=== PATIENT | male | born 1960 | race Caucasian/White ===

== ENCOUNTER 2016-08-20 20:16 | Emergency (ER) | payer OTHER ==
--- NOTE | 2016-08-20 23:20 | REPUSA ---
CT of the chest without contrast Clinical statement: hemoptysis. Technique: Multiple axial CT images were obtained with 5 mm cuts through the chest without administra tion of contrast. No comparison is available. Findings: There is no thoracic lymphadenopathy. The visualized portions of the thyroid gland is unrem arkable. There are no pericardial or pleural effusions. The lungs are clear. Limited imaging of the u pper abdomen does not demonstrate any acute abnormalities. There are no suspicious osseous lesions. Impression: Unremarkable CT examination of the chest.
--- NOTE | 2016-08-20 23:46 | EDDOCDS ---
Nurse's Notes [facility] Name: Alfred Chappell Age: 55 yrs Sex: Male : 1960 Arrival Date: 08/20/2016 Time: 20:16 Bed PR Private MD: Unknown, Family Dr Diagnosis: Hemoptysis;Cough Presentation: 08/20 20:34 Presenting complaint: Patient states: Has had ongoing cough for approximately 1 year. A jo3 little after 1900, pt coughed and had some blood "splatter" on tissue. Denies chest pain. Adult Sepsis Screening: The patient does not have new or worsening altered mentation. Patient's respiratory rate is less than 22. Systolic blood pressure is greater than 100. Patient has a qSOFA score of 0- Negative Sepsis Screen. Suicide/Homicide risk assessment- the patient denies having any suicidal and/or homicidal ideations and does not present with any other emotional, behavioral or mental health complaints. Status: Patient is not a visitor services representative or dependent. Transition of care: patient was not received from another setting of care. 20:34 Acuity: DIANNA Level 3 jo3 20:34 Method Of Arrival: Walkin/Carried/Asstd jo3 Triage Assessment: 20:36 General: Appears in no apparent distress, Behavior is appropriate for age, cooperative. jo3 Pain: Denies pain. HIV screening NA for this visit Offered previously. Neurological: Level of Consciousness is awake, alert, Oriented to person, place, time. Respiratory: Airway is patent Respiratory effort is even, unlabored. Derm: Skin is pink, warm & dry. Historical: - Allergies: No known drug Allergies; - Home Meds: 1. none - PMHx: none; - PSHx: none; - Social history: Smoking status: Patient states was never smoker of tobacco. No barriers to communication noted, The patient speaks fluent Romanian, Speaks appropriately for age. - Family history: Not pertinent. - : The pt / caregiver states he / she is not on anticoagulants. Home medication list is obtained from the patient. - Exposure Risk Screening:: None identified. Screenin:43 Screening information is obtained from the patient. Fall risk: No risks identified. jmb Assistance ADL's: requires no assistance with activities of daily living. Abuse/DV Screen: The patient / caregiver reports he/she is: not in a situation that causes fear, pain or injury. Nutritional screening: No deficits noted. Advance Directives: Currently, there is no health care proxy. There is no active DNR order. There is no living will. There is no Power of Direct Marketing Manager. home support is adequate. Assessment: 23:43 General: Patient instructed on discharge instructions. Patient asked if there were any [facility] questions regarding discharge, patient stated no. Patient signed discharge instructions. Patient discharged in stable condition. . Vital Signs: 20:18 BP 145 / 99; Pulse 62; Resp 18; Temp 97.3(O); Pulse Ox 99% on R/A; Weight 127.01 kg ct3 (R); Height 6 ft. 2 in. (187.96 cm) (R); Pain 0/10; 22:42 BP 124 / 79; Pulse 57; Resp 18; Temp 98.7(TE); Pulse Ox 97% on R/A; Pain 0/10; jb5 23:43 BP 120 / 74; Pulse 62; Resp 18; Temp 98.4(O); Pulse Ox 97% on R/A; Pain 0/10; jmb 20:18 Body Mass Index 35.95 (127.01 kg, 187.96 cm) ct3 Vitals: 20:18 Log In Time: August 20, 2016 at 20:15. ct3 ED Course: 20:17 Patient visited by Ting Aguirre PCA. ct3 20:17 Patient moved to Waiting ct3 20:19 Unknown, Family Dr is Private Physician. ct3 20:19 Patient moved to Pre RCE ct3 20:36 Triage Initiated jo3 20:37 Patient visited by Ansley Aceves RN. jo3 21:02 Patient moved to Triage 3 jmb 21:17 Bill Babb PA is PHCP. mo1 21:17 Shailesh Mena DO is Attending Physician. mo1 21:21 Patient visited by Bill Babb PA. mo1 21:38 Patient moved to TR1 jmb 21:39 [facility] Payment Agreement was scanned into [employer] and attached to record. gjb 22:08 Patient moved to PR2 / jf3 22:36 Patient visited by Martha Parmar PCA. jb5 22:43 Patient visited by Parmar, Martha, EARLY CHILDHOOD. jb5 23:38 Unknown, Family is Referral Physician. mo1 23:43 The patient / caregiver is instructed regarding the plan of care and ED course. anuradhab 23:43 No IV's were initiated during this patient's visit. No procedures done that require jmb assistance. Order Results: There are currently no results for this order. Outcome: 23:38 Discharge ordered by Provider. mo1 23:43 Discharge Assessment: Patient awake, alert and oriented x 3. No cognitive and/or jmb functional deficits noted. Patient verbalized understanding of disposition instructions. Patient awake and alert. obeys commands, Oriented to person, place and time. Patient verbalized understanding of disposition instructions. Patient has no functional deficits. patient administered narcotics - no. The following High Risk Discharge criteria are identified: None. Condition: stable Condition: improved. Discharge instructions given to patient, Instructed on discharge instructions, follow up and referral plans. Demonstrated understanding of instructions, Pt was receptive of discharge instructions/ teaching. No special radiology studies were completed. Property sent home with patient. 23:45 Patient left the ED. jmb Signatures: Martha Parmar, EARLY CHILDHOOD EARLY CHILDHOOD jb5 Ansley Aceves,RN RN Ting Bowden, EARLY CHILDHOOD EARLY CHILDHOOD ct3 Bill Babb PA PA mo1 Apollo Harrison,RN RN David Pace,RN RN Liana Andre MTDD
--- NOTE | 2016-08-20 23:46 | EDDOCDS ---
Physician Documentation [facility] Name: Alfred Chappell Age: 55 yrs Sex: Male : 1960 Arrival Date: 08/20/2016 Time: 20:16 Bed PR Private MD: Dior, Family Montero Disposition: 08/20/16 23:38 Discharged to Home/Self Care. Impression: Hemoptysis, Cough. - Condition is Stable. - Discharge Instructions: Hemoptysis, Cough, Adult. - Medication Reconciliation, Local Pharmacy Hours form. - Follow up: Unknown, Family ; When: Call to arrange an appointment; Reason: Recheck today's complaints, Continuance of care. - Problem is chronic. - Symptoms are unchanged. Historical: - Allergies: No known drug Allergies; - Home Meds: 1. none - PMHx: none; - PSHx: none; - Social history: Smoking status: Patient states was never smoker of tobacco. No barriers to communication noted, The patient speaks fluent Tuvaluan, Speaks appropriately for age. - Family history: Not pertinent. - : The pt / caregiver states he / she is not on anticoagulants. Home medication list is obtained from the patient. - Exposure Risk Screening:: None identified. Vital Signs: 08/20 20:18 BP 145 / 99; Pulse 62; Resp 18; Temp 97.3(O); Pulse Ox 99% on R/A; Weight 127.01 kg / ct3 280.01 lbs (R); Height 6 ft. 2 in. (187.96 cm) (R); Pain 0/10; 22:42 BP 124 / 79; Pulse 57; Resp 18; Temp 98.7(TE); Pulse Ox 97% on R/A; Pain 0/10; jb5 23:43 BP 120 / 74; Pulse 62; Resp 18; Temp 98.4(O); Pulse Ox 97% on R/A; Pain 0/10; jmb 20:18 Body Mass Index 35.95 (127.01 kg, 187.96 cm) ct3 MDM: 21:34 Chest, 2 View (pa\E\lat) Ordered. EDMS 21:39 [facility] Payment Agreement was scanned into [employer] and attached to record. gjb 21:40 Financial registration complete. gjb 22:11 CT Chest Without Contrast Ordered. EDMS Signatures: Dispatcher [employer] EDMS Ansley AcevesRN RN Bill Ash PA PA mo1 Becker, Joshua, RN RN jmb Beck, Gabriela gjb The chart was reviewed and I authenticate all verbal orders and agree with the evaluation and treatment provided.Attachments: 21:39 [facility] Payment Agreement tonny MTDD
--- NOTE | 2016-08-21 08:07 | REP ---
Clinical: Cough. Technique: PA and lateral. Comparison: 07/29/2011. Findings: Mediastinum and cardiac silhouette are within normal limits and stable. Lung crow demonstrate bibasilar chronic changes and subtle superimposed atelectasis cannot be excluded. No focal consolidation, effusion, or pneumothorax. Skeletal structures intact. Impression: Predominately chronic changes. Cannot exclude very minimal basilar atelectasis. Signed by Teofilo So MD 08/21/2016 07:58 A
--- NOTE | 2016-08-23 00:46 | EDDOCDS ---
Physician Documentation [facility] Name: Alfred Chappell Age: 55 yrs Sex: Male : 1960 Arrival Date: 08/20/2016 Time: 20:16 Bed PR Private MD: Dior, Family Montero Disposition: 08/20/16 23:38 Discharged to Home/Self Care. Impression: Hemoptysis, Cough. - Condition is Stable. - Discharge Instructions: Hemoptysis, Cough, Adult. - Medication Reconciliation, Local Pharmacy Hours form. - Follow up: Unknown, Family ; When: Call to arrange an appointment; Reason: Recheck today's complaints, Continuance of care. - Problem is chronic. - Symptoms are unchanged. Historical: - Allergies: No known drug Allergies; - Home Meds: 1. none - PMHx: none; - PSHx: none; - Social history: Smoking status: Patient states was never smoker of tobacco. No barriers to communication noted, The patient speaks fluent Argentine, Speaks appropriately for age. - Family history: Not pertinent. - : The pt / caregiver states he / she is not on anticoagulants. Home medication list is obtained from the patient. - Exposure Risk Screening:: None identified. Vital Signs: 08/20 20:18 BP 145 / 99; Pulse 62; Resp 18; Temp 97.3(O); Pulse Ox 99% on R/A; Weight 127.01 kg / ct3 280.01 lbs (R); Height 6 ft. 2 in. (187.96 cm) (R); Pain 0/10; 22:42 BP 124 / 79; Pulse 57; Resp 18; Temp 98.7(TE); Pulse Ox 97% on R/A; Pain 0/10; jb5 23:43 BP 120 / 74; Pulse 62; Resp 18; Temp 98.4(O); Pulse Ox 97% on R/A; Pain 0/10; jmb 20:18 Body Mass Index 35.95 (127.01 kg, 187.96 cm) ct3 MDM: 21:34 Chest, 2 View (pa\E\lat) Ordered. EDMS 21:39 [facility] Payment Agreement was scanned into [employer] [address] and attached to record. gjb 21:40 Financial registration complete. gjb 22:11 CT Chest Without Contrast Ordered. EDMS 08/21 10:18 T-Sheet-- Draft Copy was scanned into [employer] [address] and attached to record. gb 10:18 Radiology Report was scanned into [employer] [address] and attached to record. gb Signatures: Dispatcher [employer] EDNM Tiffany Berkowitz, Reg Reg gb Ansley Aceves RN RN Bill Ash PA PA mo1 Becker, Joshua, RN RN jmb Beck, Gabriela gjb The chart was reviewed and I authenticate all verbal orders and agree with the evaluation and treatment provided.Attachments: 08/20 21:39 [facility] [place] gjb 08/21 10:18 T-Sheet-- Draft Copy gb Chart Complete MTDD
--- NOTE | 2016-08-23 00:46 | EDDOCDS ---
Nurse's Notes [facility] Name: Alfred Chappell Age: 55 yrs Sex: Male : 1960 Arrival Date: 08/20/2016 Time: 20:16 Bed PR Private MD: Unknown, Family Dr Diagnosis: Hemoptysis;Cough Presentation: 08/20 20:34 Presenting complaint: Patient states: Has had ongoing cough for approximately 1 year. A jo3 little after 1900, pt coughed and had some blood "splatter" on tissue. Denies chest pain. Adult Sepsis Screening: The patient does not have new or worsening altered mentation. Patient's respiratory rate is less than 22. Systolic blood pressure is greater than 100. Patient has a qSOFA score of 0- Negative Sepsis Screen. Suicide/Homicide risk assessment- the patient denies having any suicidal and/or homicidal ideations and does not present with any other emotional, behavioral or mental health complaints. Status: Patient is not a track service person or dependent. Transition of care: patient was not received from another setting of care. 20:34 Acuity: DIANNA Level 3 jo3 20:34 Method Of Arrival: Walkin/Carried/Asstd jo3 Triage Assessment: 20:36 General: Appears in no apparent distress, Behavior is appropriate for age, cooperative. jo3 Pain: Denies pain. HIV screening NA for this visit Offered previously. Neurological: Level of Consciousness is awake, alert, Oriented to person, place, time. Respiratory: Airway is patent Respiratory effort is even, unlabored. Derm: Skin is pink, warm & dry. Historical: - Allergies: No known drug Allergies; - Home Meds: 1. none - PMHx: none; - PSHx: none; - Social history: Smoking status: Patient states was never smoker of tobacco. No barriers to communication noted, The patient speaks fluent Lao, Speaks appropriately for age. - Family history: Not pertinent. - : The pt / caregiver states he / she is not on anticoagulants. Home medication list is obtained from the patient. - Exposure Risk Screening:: None identified. Screenin:43 Screening information is obtained from the patient. Fall risk: No risks identified. jmb Assistance ADL's: requires no assistance with activities of daily living. Abuse/DV Screen: The patient / caregiver reports he/she is: not in a situation that causes fear, pain or injury. Nutritional screening: No deficits noted. Advance Directives: Currently, there is no health care proxy. There is no active DNR order. There is no living will. There is no Power of Agency Owner. home support is adequate. Assessment: 23:43 General: Patient instructed on discharge instructions. Patient asked if there were any [facility] questions regarding discharge, patient stated no. Patient signed discharge instructions. Patient discharged in stable condition. . Vital Signs: 20:18 BP 145 / 99; Pulse 62; Resp 18; Temp 97.3(O); Pulse Ox 99% on R/A; Weight 127.01 kg ct3 (R); Height 6 ft. 2 in. (187.96 cm) (R); Pain 0/10; 22:42 BP 124 / 79; Pulse 57; Resp 18; Temp 98.7(TE); Pulse Ox 97% on R/A; Pain 0/10; jb5 23:43 BP 120 / 74; Pulse 62; Resp 18; Temp 98.4(O); Pulse Ox 97% on R/A; Pain 0/10; jmb 20:18 Body Mass Index 35.95 (127.01 kg, 187.96 cm) ct3 Vitals: 20:18 Log In Time: August 20, 2016 at 20:15. ct3 ED Course: 20:17 Patient visited by Ting Aguirre PCA. ct3 20:17 Patient moved to Waiting ct3 20:19 Unknown, Family Dr is Private Physician. ct3 20:19 Patient moved to Pre RCE ct3 20:36 Triage Initiated jo3 20:37 Patient visited by Ansley Aceves RN. jo3 21:02 Patient moved to Triage 3 jmb 21:17 Bill Babb PA is PHCP. mo1 21:17 Shailesh Mena DO is Attending Physician. mo1 21:21 Patient visited by Bill Babb PA. mo1 21:38 Patient moved to TR1 jmb 21:39 [facility] Payment Agreement was scanned into [email or web address] and attached to record. gjb 22:08 Patient moved to PR2 / jf3 22:36 Patient visited by Martha Parmar PCA. jb5 22:43 Patient visited by Parmar, Martha, POLICYHOLDER INFORMATION CLERK. jb5 23:38 Unknown, Family Dr is Referral Physician. mo1 23:43 The patient / caregiver is instructed regarding the plan of care and ED course. jmb 23:43 No IV's were initiated during this patient's visit. No procedures done that require jmb assistance. 08/21 00:02 CT Chest Without Contrast Returned. EDMS 08:46 Chest, 2 View (pa\\E\\lat) Returned. EDMS 10:18 T-Sheet-- Draft Copy was scanned into [email or web address] and attached to record. gb 10:18 Radiology Report was scanned into [email or web address] and attached to record. gb Order Results: Radiology Order: Chest, 2 View (pa\\E\\lat) Test: Chest, 2 View (pa\\E\\lat) REASON FOR EXAMINATION: Cough; Clinical: Cough.; ; Technique: PA and lateral.; ; Comparison: 07/29/2011.; ; Findings:; Mediastinum and cardiac silhouette are within normal limits and stable. Lung; crow demonstrate bibasilar chronic changes and subtle superimposed atelectasis; cannot be excluded. No focal consolidation, effusion, or pneumothorax. Skeletal; structures intact.; ; Impression:; Predominately chronic changes. Cannot exclude very minimal basilar atelectasis.; ; ; Signed by; Teofilo So MD 08/21/2016 07:58 A; Radiology Order: CT Chest Without Contrast Test: CT Chest Without Contrast REASON FOR EXAMINATION: cough with blood; ; CT of the chest without contrast; Clinical statement: hemoptysis.; Technique: Multiple axial CT images were obtained with 5 mm cuts through the chest without administra; tion of contrast.; No comparison is available.; Findings: There is no thoracic lymphadenopathy. The visualized portions of the thyroid gland is unrem; arkable. There are no pericardial or pleural effusions. The lungs are clear. Limited imaging of the u; pper abdomen does not demonstrate any acute abnormalities. There are no suspicious osseous lesions.; Impression: Unremarkable CT examination of the chest.; ; Outcome: 08/20 23:38 Discharge ordered by Provider. mo1 23:43 Discharge Assessment: Patient awake, alert and oriented x 3. No cognitive and/or jmb functional deficits noted. Patient verbalized understanding of disposition instructions. Patient awake and alert. obeys commands, Oriented to person, place and time. Patient verbalized understanding of disposition instructions. Patient has no functional deficits. patient administered narcotics - no. The following High Risk Discharge criteria are identified: None. Condition: stable Condition: improved. Discharge instructions given to patient, Instructed on discharge instructions, follow up and referral plans. Demonstrated understanding of instructions, Pt was receptive of discharge instructions/ teaching. No special radiology studies were completed. Property sent home with patient. 23:45 Patient left the ED. hellen Signatures: Dispatcher [employer] EDMS Tiffany Berkowitz, Reg Reg gb Martha Parmar, POLICYHOLDER INFORMATION CLERK POLICYHOLDER INFORMATION CLERK jb5 Ansley Aceves,RN RN Ting Bowden, POLICYHOLDER INFORMATION CLERK POLICYHOLDER INFORMATION CLERK ct3 Bill Babb PA PA mo1 Becker, Joshua,RN RN David PaceRN RN Liana Andre Chart Complete MTDDago
--- NOTE | 2016-08-23 00:46 | EDDOCDS ---
[facility] Name: Alfred Chappell Age: 55 yrs Sex: Male : 1960 Arrival Date: 08/20/2016 Time: 20:16 Bed PR Private MD: Dior, Family Montero Disposition: 08/20/16 23:38 Discharged to Home/Self Care. Impression: Hemoptysis, Cough. - Condition is Stable. - Discharge Instructions: Hemoptysis, Cough, Adult. - Medication Reconciliation, Local Pharmacy Hours form. - Follow up: Unknown, Family ; When: Call to arrange an appointment; Reason: Recheck today's complaints, Continuance of care. - Problem is chronic. - Symptoms are unchanged. Historical: - Allergies: No known drug Allergies; - Home Meds: 1. none - PMHx: none; - PSHx: none; - Social history: Smoking status: Patient states was never smoker of tobacco. No barriers to communication noted, The patient speaks fluent Slovak, Speaks appropriately for age. - Family history: Not pertinent. - : The pt / caregiver states he / she is not on anticoagulants. Home medication list is obtained from the patient. - Exposure Risk Screening:: None identified. Vital Signs: 08/20 20:18 BP 145 / 99; Pulse 62; Resp 18; Temp 97.3(O); Pulse Ox 99% on R/A; Weight 127.01 kg / ct3 280.01 lbs (R); Height 6 ft. 2 in. (187.96 cm) (R); Pain 0/10; 22:42 BP 124 / 79; Pulse 57; Resp 18; Temp 98.7(TE); Pulse Ox 97% on R/A; Pain 0/10; jb5 23:43 BP 120 / 74; Pulse 62; Resp 18; Temp 98.4(O); Pulse Ox 97% on R/A; Pain 0/10; jmb 20:18 Body Mass Index 35.95 (127.01 kg, 187.96 cm) ct3 MDM: 21:34 Chest, 2 View (pa\E\lat) Ordered. EDMS 21:39 [facility] Payment Agreement was scanned into [employer] and attached to record. gjb 21:40 Financial registration complete. gjb 22:11 CT Chest Without Contrast Ordered. EDMS 08/21 10:18 T-Sheet-- Draft Copy was scanned into [employer] and attached to record. gb 10:18 Radiology Report was scanned into [employer] and attached to record. gb Signatures: Dispatcher [employer] EDIN Tiffany Berkowitz, Reg Reg gb Ansley Aceves RN RN Bill Ash PA PA mo1 Becker, Joshua, RN RN jmb Beck, Gabriela gjb The chart was reviewed and I authenticate all verbal orders and agree with the evaluation and treatment provided.Attachments: 08/20 21:39 [facility] [place] Agreement gjb 08/21 10:18 T-Sheet-- Draft Copy gb Chart Complete MTDD
== END 2016-08-20 23:45 | disposition home or self-care (01) ==
LOC: M ED 20:16
DX: R04.2 Hemoptysis (principal)

== ENCOUNTER → 2018-12-18 | Outpatient (CLI) | payer OTHER ==
[2018-12-18 16:53] LABS: BASO % 0.3 % (0.0-1.0); EOS # 0.2 10^3/uL (0.0-0.50); EOS % 3.3 % (0.0-3.0); HEMATOCRIT 47.8 % (42.0-52.0); HEMOGLOBIN 15.8 g/dl (13.5-17.5); LYMPH # 2.2 10^3/uL (1.5-4.5); LYMPH % 37.2 % (24.0-44.0); MEAN CORPUSCULAR HEMOGLOBIN 30.4 pg (27.0-33.0); MEAN CORPUSCULAR HGB CONC 33.1 g/dl (32.0-36.5); MEAN CORPUSCULAR VOLUME 92.1 fl (80.0-96.0); MONO # 0.9 10^3/uL (0.0-0.8); MONO % 15.1 % (0.0-5.0); NEUTROPHILS # 2.6 10^3/uL (1.8-7.7); NEUTROPHILS % 43.9 % (36.0-66.0); PLATELET COUNT, AUTOMATED 298 10^3/uL (150-450); RED BLOOD COUNT 5.19 10^6/uL (4.30-6.10); WHITE BLOOD COUNT 5.8 10^3/uL (4.0-10.0)
[2018-12-18 17:05] LABS: ALBUMIN 3.8 GM/DL (3.2-5.2); ALT/SGPT 67 U/L (12-78); BILIRUBIN,TOTAL 0.6 MG/DL (0.2-1.0); BLOOD UREA NITROGEN 9 MG/DL (7-18); CALCIUM LEVEL 8.6 MG/DL (8.5-10.1); CARBON DIOXIDE LEVEL 27 MEQ/L (21-32); CHLORIDE LEVEL 107 MEQ/L (98-107); CREATININE FOR GFR 1.02 MG/DL (0.70-1.30); GLOMERULAR FILTRATION RATE > 60.0 (>56); GLUCOSE, FASTING 88 MG/DL (70-100); POTASSIUM SERUM 4.4 MEQ/L (3.5-5.1); SODIUM LEVEL 141 MEQ/L (136-145); TOTAL PROTEIN 7.5 GM/DL (6.4-8.2); URIC ACID 5.6 MG/DL (3.5-7.2)
== END ==
LOC: M WUC 10:59
PROVIDERS: ATTEND Physician Assistant
DX: M79.671 Pain in right foot (principal)

== ENCOUNTER 2019-02-01 07:27 | Day surgery (SDC) | payer OTHER ==
[~2019-02-01] VITALS: Ht 188 cm; Wt 132.4 kg
[~2019-02-01 07:27] MED LIST: AMLO10TA5 PO; NS 1,000 ML IV ONE; PROPOFOL 200 MG/20 ML VIAL As Ordered ONE
--- NOTE | 2019-02-01 09:03 | ROOR ---
Patient Name: Alfred Chappell Procedure Date: 02/01/2019 8:33 AM Date of : 1960 Age: 58 Room: [facility] Gender: Male Note Status: Finalized Procedure: Colonoscopy Indications: High risk colon cancer surveillance: Personal history of colonic polyps Providers: Carlos Casiano Jr, MD Referring MD: UNRULY BARRAGAN MD Requesting Provider: Medicines: Propofol per Anesthesia Complications: No immediate complications. Procedure: Pre-Anesthesia Assessment: - Prior to the procedure, a History and Physical was performed, and patient medications and allergies were reviewed. The patient is competent. The risks and benefits of the procedure and the sedation options and risks were discussed with the patient. All questions were answered and informed consent was obtained. Patient identification and proposed procedure were verified by the physician and the nurse in the pre-procedure area and in the procedure room. Mental Status Examination: alert and oriented. Airway Examination: normal oropharyngeal airway and neck mobility. Respiratory Examination: clear to auscultation. CV Examination: normal. ASA Grade Assessment: II - A patient with mild systemic disease. After reviewing the risks and benefits, the patient was deemed in satisfactory condition to undergo the procedure. The anesthesia plan was to use moderate sedation / analgesia (conscious sedation). Immediately prior to administration of medications, the patient was re-assessed for adequacy to receive sedatives. The heart rate, respiratory rate, oxygen saturations, blood pressure, adequacy of pulmonary ventilation, and response to care were monitored throughout the procedure. The physical status of the patient was re-assessed after the procedure. The Colonoscope was introduced through the anus and advanced to the cecum, identified by appendiceal orifice and ileocecal valve. The colonoscopy was performed without difficulty. The patient tolerated the procedure well. The quality of the bowel preparation was adequate. Findings: The rectum, sigmoid colon, descending colon, transverse colon, ascending colon, cecum, appendiceal orifice and ileocecal valve appeared normal. Two hyperplastic polyps were found in the recto-sigmoid colon. The polyps were diminutive in size. These polyps were removed with a cold snare. Resection and retrieval were complete. Impression: - The rectum, sigmoid colon, descending colon, transverse colon, ascending colon, cecum, appendiceal orifice and ileocecal valve are normal. - Two diminutive polyps at the recto-sigmoid colon, removed with a cold snare. Resected and retrieved. Recommendation: - Repeat colonoscopy in 5 years for surveillance. Carlos Casiano MD Carlos Casiano Jr, MD 02/01/2019 9:03:06 AM Electronically signed by Carlos Casiano Jr, MD Number of Addenda: 0 Note Initiated On: 02/01/2019 8:33 AM Estimated Blood Loss: Estimated blood loss: none.
[2019-02-01 09:25] VITALS: BP 136/96
== END 2019-02-01 09:44 | disposition home or self-care (01) ==
LOC: M OPP 07:27
PROVIDERS: ATTEND Surgery
DX: K63.5 Polyp of colon (principal); Z86.010 Personal history of colon polyps

== ENCOUNTER → 2019-02-05 | Outpatient (CLI) | payer OTHER ==
[~2019-02-05] MED LIST changes: -NS 1,000 ML IV ONE; -PROPOFOL 200 MG/20 ML VIAL As Ordered ONE
--- NOTE | 2019-02-05 11:18 | REP ---
Clinical: Right lower extremity pain and swelling . Technique: Boswell scale and color Doppler evaluation using linear high frequency transducer. Findings: Ultrasound examination of the right lower extremity deep venous structures from the common femoral vein to the popliteal vein demonstrates normal compressibility flow and wave patterns in response to respiration and augmentation. There is no evidence for deep venous thrombosis. Impression: No evidence for deep venous thrombosis. Electronically Signed by Teofilo So MD 02/05/2019 11:09 A
== END ==
LOC: M RAD 10:17
PROVIDERS: ATTEND Physician Assistant
DX: M79.89 Other specified soft tissue disorders (principal); I73.9 Peripheral vascular disease, unspecified

== ENCOUNTER → 2021-06-03 | Outpatient (CLI) | payer OTHER ==
[~2021-06-03] MED LIST changes: -AMLO10TA5 PO; +AMLO1TAB25 PO
--- NOTE | 2021-06-03 15:44 | REP ---
INDICATION: PAIN/MASS COMPARISON: None. TECHNIQUE: AP and lateral left forearm. FINDINGS: There is no evidence of acute fracture, dislocation, or intrinsic bone disease.No gross soft tissue abnormality is seen. IMPRESSION: Negative radiographic exam of left forearm. <Electronically signed by Jhon Boswell > 06/03/21 [id number]
== END ==
LOC: M WUC 10:17
PROVIDERS: ATTEND Physician Assistant
DX: M79.632 Pain in left forearm (principal)

== ENCOUNTER 2024-04-19 09:20 | Day surgery (SDC) | payer OTHER ==
[~2024-04-19] VITALS: Ht 188 cm; Wt 131.9 kg
[~2024-04-19 09:20] MED LIST changes: +LOSA100T8 PO; +NS 1,000 ML IV ONE
[2024-04-19] MEDS ORDERED: propofoL 200 MG/20 ML VIAL As Ordered ONE (10:01)
[2024-04-19] MEDS ORDERED: SIMETHICONE 40MG/0.6ML DROPS 30ML As Ordered ONE (10:06)
[2024-04-19] MEDS ORDERED: GLYCOPYRROLATE INJ 0.2 MG/ML 2 ML VIAL As Ordered ONE (10:12)
[2024-04-19 10:30] VITALS: TEMP 98
[2024-04-19 10:45] VITALS: BP 99/61; O2SAT 94
== END 2024-04-19 10:55 | disposition home or self-care (01) ==
LOC: M OPP 09:20
PROVIDERS: ATTEND Surgery
DX: Z12.11 Encounter for screening for malignant neoplasm of colon (principal); Z86.010 Personal history of colon polyps; Z80.0 Family history of malignant neoplasm of digestive organs; D12.6 Benign neoplasm of colon, unspecified; Z79.899 Other long term (current) drug therapy
CPT/HCPCS: 45385; 88305; J1596